=== PATIENT | female | born 1995 | race Caucasian/White ===

== ENCOUNTER 2023-01-19 19:58 | Inpatient (IN) | payer OTHER ==
[2023-01-19] MEDS ORDERED: Carboprost Tromethamine 250 MCG/1 ML Amp IM PRN (20:40)
[2023-01-19] MEDS ORDERED: Terbutaline 1 MG/ML SDV SUBCUT PRN (20:40)
[2023-01-19] MEDS ORDERED: Water For Irrigation,Sterile 1,000 ML Container IRR PRN (20:40)
[2023-01-19] MEDS ORDERED: Misoprostol 200 MCG Tab PO PRN (20:40)
[2023-01-19] MEDS ORDERED: Sodium Chloride 0.9% 2.5 ML Syringe FLUSH PRN (20:40)
[2023-01-19] MEDS ORDERED: Butorphanol 1 MG/ML SDV IVPUSH PRN (20:40)
[2023-01-19] MEDS ORDERED: Sodium Chloride 0.9% 10 ML Syringe FLUSH PRN (20:40)
[2023-01-19] MEDS ORDERED: Ondansetron 4 MG/2 ML SDV IVPUSH PRN (20:40)
[2023-01-19] MEDS ORDERED: Methylergonovine 0.2 MG/1 ML Amp IM PRN (20:40)
[2023-01-19] MEDS ORDERED: Sodium Chloride 0.9% 20 ML SDV IV PRN (20:40)
[2023-01-19] MEDS ORDERED: Tranexamic Acid 1,000 MG in Sodium Chloride 0.9% 100 ML IV PRN (20:40)
[2023-01-19] MEDS ORDERED: Lidocaine 1% 50 ML MDV INJECT PRN (20:40)
[2023-01-19] MEDS ORDERED: Oxytocin/0.9 % Sodium Chloride 30 UNIT/500 ML BAG IV SCH ×2 (20:45)
[2023-01-19] MEDS ORDERED: Misoprostol 25 MCG (1/4 of 100 MCG) Tab VAG PRN (21:00)
[2023-01-20 00:06] LABS: CARBON DIOXIDE,CO2 19.9 mmol/L (21.0-32.0); POTASSIUM,K 4.3 mmol/L (3.5-5.1)
[2023-01-20] MEDS ORDERED: Misoprostol 25 MCG (1/4 of 100 MCG) Tab VAG PRN (01:00)
[2023-01-20] MEDS: Lactated Ringers 1,000 ML IV SCH ×4 (05:03→19:40)
[2023-01-20] MEDS ORDERED: Ropivacaine/PF 400 MG/200 ML PCA ONE (05:40)
[2023-01-20] MEDS ORDERED: Dexmedetomidine 200 MCG/2 ML SDV ONE (05:40)
[2023-01-20] MEDS ORDERED: Phenylephrine HCl 0.5 MG/5 ML AMP ONE (05:40)
[2023-01-20] MEDS ORDERED: ePHEDrine 50 MG/ML SDV IVPUSH PRN ×2 (05:50)
[2023-01-20] MEDS ORDERED: Phenylephrine HCl 0.5 MG/5 ML AMP IVPUSH PRN (05:50)
[2023-01-20] MEDS ORDERED: Ropivacaine HCl/PF 400 MG in Premix Bag 1 BAG EPIDUR SCH (06:00)
[2023-01-20] MEDS ORDERED: Bisacodyl 10 MG Supp RECTAL PRN (21:51)
[2023-01-20] MEDS ORDERED: Acetaminophen 500 MG Tab PO PRN (21:51)
[2023-01-20] MEDS ORDERED: Lanolin 100% Cream 7 GM Tube TOP PRN (21:51)
[2023-01-20] MEDS ORDERED: oxyCODONE 5 MG Tab PO PRN (21:51)
[2023-01-20] MEDS ORDERED: Docusate Sodium 100 MG Cap PO PRN (21:51)
[2023-01-20] MEDS ORDERED: Ibuprofen 400 MG Tab PO PRN (21:51)
[2023-01-20] MEDS ORDERED: Benzocaine/Menthol 20%-0.5% Spray 78 GM Cannister TOP PRN (21:51)
[2023-01-20] MEDS ORDERED: Witch Hazel Medicated Pads 40/Jar TOP PRN (21:51)
[2023-01-20] MEDS: Ibuprofen 800 MG Tab PO PRN (23:31)
[2023-01-20] MEDS: Acetaminophen 500 MG Tab PO PRN (23:32)
[2023-01-21] MEDS ORDERED: Methylergonovine 0.2 MG/1 ML Amp ONE (04:55)
[2023-01-21] MEDS: Acetaminophen 500 MG Tab PO PRN (05:02)
[2023-01-21] MEDS ORDERED: Methylergonovine 0.2 MG/1 ML Amp IM ONE (05:21)
[2023-01-21] MEDS: Ibuprofen 800 MG Tab PO PRN (05:48)
== END 2023-01-22 11:35 | disposition home or self-care (01) | DRG 807 ==
LOC: MW.OB 19:58 → OBSVTOIN 01-20 21:27 → MW.OB 01-21 00:12
PROVIDERS: ADMIT Obstetrics & Gynecology; ATTEND Obstetrics & Gynecology
PROC: 10E0XZZ Delivery of Products of Conception, External Approach (ICD-10-PCS; principal; 2023-01-20)
PROC: 3E0P7VZ Introduction of Hormone into Female Reproductive, Via Natural or Artificial Opening (ICD-10-PCS; 2023-01-20)
PROC: 0HQ9XZZ Repair Perineum Skin, External Approach (ICD-10-PCS; 2023-01-20)
PROC: 3E0R3BZ Introduction of Anesthetic Agent into Spinal Canal, Percutaneous Approach (ICD-10-PCS; 2023-01-20)
PROC: 00HU33Z Insertion of Infusion Device into Spinal Canal, Percutaneous Approach (ICD-10-PCS; 2023-01-20)
DX: O70.0 First degree perineal laceration during delivery (principal); Z37.0 Single live birth; Z3A.39 39 weeks gestation of pregnancy; Z87.891 Personal history of nicotine dependence
CPT/HCPCS: 01967; 36415; 51702; 59025; 59409; 80053; 81003; 82803; 84112; 84550; 85014; 85018; 85027; 86592; 86850; 86900; 86901; A9270-GY; J0595; J2210; J2370; J2405; J2590; J2795; J3490; J7120

== ENCOUNTER 2024-08-19 20:03 | Emergency (ER) | payer OTHER ==
[2024-08-19 20:25] LABS: BASOPHILS ABSOLUTE AUTO 0.02 K/uL (0.00-0.20); BASOPHILS PERCENT AUTO 0.2 % (0.0-1.0); EOSINOPHILS ABSOLUTE AUTO 0.21 K/uL (0.00-0.45); EOSINOPHILS PERCENT AUTO 1.9 % (0.0-6.0); HEMATOCRIT 39.3 % (37.0-47.0); HEMOGLOBIN 13.2 g/dL (12.0-16.0); IMMATURE GRAN ABSOLUTE AUTO 0.05 K/uL (0.00-0.05); IMMATURE GRAN PERCENT AUTO 0.4 % (0.0-0.4); LYMPHOCYTES ABSOLUTE AUTO 2.77 K/uL (1.00-4.80); LYMPHOCYTES PERCENT AUTO 24.6 % (24.0-44.0); MEAN CORPUSCULAR HEMOGLOBIN 28.4 pg (28.0-32.0); MEAN CORPUSCULAR HGB CONC 33.6 g/dL (32.0-36.0); MEAN CORPUSCULAR VOLUME 84.5 fL (83.0-99.0); MEAN PLATELET VOLUME 10.5 fL (9.4-12.3); MONOCYTES ABSOLUTE AUTO 0.62 K/uL (0.00-0.80); MONOCYTES PERCENT AUTO 5.5 % (0.0-8.0); NEUTROPHILS ABSOLUTE AUTO 7.61 K/uL (1.80-7.70); NEUTROPHILS PERCENT AUTO 67.4 % (41.0-71.0); PLATELET COUNT,PLT 242 K/uL (150-400); RED BLOOD CELL COUNT 4.65 M/uL (4.10-5.30); WHITE BLOOD CELL COUNT,WBC 11.28 K/uL (3.9-11.3)
[2024-08-19 21:19] LABS: A/G RATIO 0.7 (0.9-1.6); ALANINE AMINOTRANSFERASE,ALT 31 IU/L (14-63); ALBUMIN 2.8 g/dL (3.4-5.0); ALKALINE PHOSPHATASE 109 U/L (46-116); ASPARTATE AMNIOTRANSFERASE,AST 14 IU/L (15-37); BILIRUBIN TOTAL 0.1 mg/dL (0.2-1.0); BLOOD UREA NITROGEN,BUN 12 mg/dL (7.0-18.0); CHLORIDE,CL 104 mmol/L (98-107); CREATININE 0.7 mg/dL (0.6-1.0); GLUCOSE RANDOM 106 mg/dL (74-106); POTASSIUM,K 3.7 mmol/L (3.5-5.1); PROTEIN TOTAL,TP 6.9 g/dL (6.4-8.2); SODIUM,NA 137 mmol/L (136-145)
[2024-08-19 21:24] LABS: ESTIMATED GFR 121 mL/min (>60)
[2024-08-19 22:05] LABS: BILIRUBIN,URINE NEGATIVE (NEGATIVE); GLUCOSE,URINE NEGATIVE (NEGATIVE); KETONES,URINE NEGATIVE (NEGATIVE); LEUKOCYTE ESTERASE,URINE NEGATIVE (NEGATIVE); NITRITE,URINE NEGATIVE (NEGATIVE); OCCULT BLOOD,URINE LARGE (NEGATIVE); PROTEIN,URINE NEGATIVE (NEGATIVE); UROBILINOGEN,URINE 0.2 EU/dL (<2.0)
[2024-08-19 22:10] LABS: APPEARANCE,URINE HAZY; COLOR,URINE PINK
[2024-08-19 22:13] LABS: BACTERIA,URINE FEW (NEGATIVE); EPITHELIAL CELLS,URINE OCCASIONAL (NONE-FEW); WBC,URINE 0-1 (0-5/HPF)
== END 2024-08-19 22:37 | disposition home or self-care (01) ==
LOC: MW.ED 20:03
DX: O20.0 Threatened abortion (principal); R82.71 Bacteriuria; Z75.8 Other problems related to medical facilities and other health care; Z79.82 Long term (current) use of aspirin; Z79.899 Other long term (current) drug therapy; Z3A.14 14 weeks gestation of pregnancy
CPT/HCPCS: 36415; 76801; 76801-26; 80053; 81001; 84702; 85025; 99284

== ENCOUNTER 2025-02-06 20:49 | Inpatient (IN) | payer OTHER ==
[2025-02-06 21:36] LABS: APPEARANCE,URINE CLEAR; BILIRUBIN,URINE NEGATIVE (NEGATIVE); COLOR,URINE YELLOW; GLUCOSE,URINE NEGATIVE (NEGATIVE); KETONES,URINE NEGATIVE (NEGATIVE); LEUKOCYTE ESTERASE,URINE MODERATE (NEGATIVE); NITRITE,URINE NEGATIVE (NEGATIVE); OCCULT BLOOD,URINE NEGATIVE (NEGATIVE); PROTEIN,URINE NEGATIVE (NEGATIVE); UROBILINOGEN,URINE 0.2 EU/dL (<2.0)
[2025-02-06] MEDS ORDERED: Ondansetron 4 MG/2 ML SDV IVPUSH PRN (21:46)
[2025-02-06] MEDS ORDERED: Water For Irrigation,Sterile 1,000 ML Container IRR PRN (21:46)
[2025-02-06] MEDS ORDERED: Carboprost Tromethamine 250 MCG/1 mL Vial IM PRN (21:46)
[2025-02-06] MEDS ORDERED: Methylergonovine 0.2 MG/1 ML Amp IM PRN (21:46)
[2025-02-06] MEDS ORDERED: Sodium Chloride 0.9% 20 ML SDV IV PRN (21:46)
[2025-02-06] MEDS ORDERED: Misoprostol 200 MCG Tab PO PRN (21:46)
[2025-02-06] MEDS ORDERED: Lidocaine 1% 50 ML MDV INJECT PRN (21:46)
[2025-02-06] MEDS ORDERED: Sodium Chloride 0.9% 2.5 ML Syringe FLUSH PRN (21:46)
[2025-02-06] MEDS ORDERED: Sodium Chloride 0.9% 10 ML Syringe FLUSH PRN (21:46)
[2025-02-06 22:27] LABS: HEMATOCRIT 34.7 % (37.0-47.0); HEMOGLOBIN 11.8 g/dL (12.0-16.0); MEAN CORPUSCULAR HEMOGLOBIN 27.3 pg (28.0-32.0); MEAN CORPUSCULAR VOLUME 80.1 fL (83.0-99.0); PLATELET COUNT,PLT 233 K/uL (150-400); RED BLOOD CELL COUNT 4.33 M/uL (4.10-5.30); WHITE BLOOD CELL COUNT,WBC 14.66 K/uL (3.9-11.3)
[2025-02-06] MEDS: Lactated Ringers 1,000 ML IV SCH (22:30)
[2025-02-06] MEDS ORDERED: Phenylephrine HCl In 0.9% NaCl 1 MG/10 ML Syringe ONE (22:56)
[2025-02-06] MEDS ORDERED: Bupivacaine 0.5% 10 ML SDV ONE (22:56)
[2025-02-06] MEDS ORDERED: Ropivacaine HCl/PF 200 ML ONE (22:56)
[2025-02-06] MEDS: Ropivacaine HCl/PF 400 MG in Premix Bag 1 BAG EPIDUR SCH (23:03)
[2025-02-06] MEDS ORDERED: Phenylephrine HCl In 0.9% NaCl 1 MG/10 ML Syringe IVPUSH PRN (23:17)
[2025-02-06] MEDS ORDERED: ePHEDrine 50 MG/ML SDV IVPUSH PRN (23:17)
[2025-02-06] MEDS ORDERED: ePHEDrine 50 MG/ML SDV IM PRN (23:17)
[2025-02-06] MEDS ORDERED: dexmedeTOMIDine HCl 200 MCG/2 ML SDV EPIDUR SCH (23:30)
[2025-02-07] MEDS: Oxytocin/0.9 % Sodium Chloride 30 UNIT/500 ML BAG IV SCH (01:15)
[2025-02-07] MEDS ORDERED: Atropine/Diphenoxylate 0.025-2.5 MG Tab PO ONE (01:56)
[2025-02-07] MEDS ORDERED: Acetaminophen 500 MG Tab PO PRN (02:08)
[2025-02-07] MEDS ORDERED: Ibuprofen 800 MG Tab PO PRN (02:08)
[2025-02-07] MEDS ORDERED: Lanolin 100% Cream 7 GM Tube TOP PRN (02:08)
[2025-02-07] MEDS ORDERED: Docusate Sodium 100 MG Cap PO PRN (02:08)
[2025-02-07 02:31] LABS: PH,UMBILICAL ARTERIAL 7.26 (7.18-7.38); PH,UMBILICAL VENOUS 7.34 (7.25-7.45)
[2025-02-07] MEDS: Benzocaine/Menthol 20%-0.5% Spray 78 GM Cannister TOP PRN (05:11)
[2025-02-07] MEDS: Witch Hazel Medicated Pads 40/Jar TOP PRN (05:13)
[2025-02-07 06:55] LABS: BASOPHILS ABSOLUTE AUTO 0.04 K/uL (0.00-0.20); BASOPHILS PERCENT AUTO 0.2 % (0.0-1.0); EOSINOPHILS ABSOLUTE AUTO 0.02 K/uL (0.00-0.45); EOSINOPHILS PERCENT AUTO 0.1 % (0.0-6.0); HEMATOCRIT 34.9 % (37.0-47.0); HEMOGLOBIN 11.5 g/dL (12.0-16.0); IMMATURE GRAN ABSOLUTE AUTO 0.08 K/uL (0.00-0.05); IMMATURE GRAN PERCENT AUTO 0.4 % (0.0-0.4); LYMPHOCYTES ABSOLUTE AUTO 2.14 K/uL (1.00-4.80); MEAN CORPUSCULAR HEMOGLOBIN 26.9 pg (28.0-32.0); MEAN CORPUSCULAR VOLUME 81.5 fL (83.0-99.0); MEAN PLATELET VOLUME 11.3 fL (9.4-12.3); MONOCYTES ABSOLUTE AUTO 1.03 K/uL (0.00-0.80); MONOCYTES PERCENT AUTO 5.3 % (0.0-8.0); NEUTROPHILS ABSOLUTE AUTO 16.13 K/uL (1.80-7.70); PLATELET COUNT,PLT 221 K/uL (150-400); RED BLOOD CELL COUNT 4.28 M/uL (4.10-5.30); WHITE BLOOD CELL COUNT,WBC 19.44 K/uL (3.9-11.3)
[2025-02-08 09:40] LABS: BASOPHILS ABSOLUTE AUTO 0.03 K/uL (0.00-0.20); BASOPHILS PERCENT AUTO 0.2 % (0.0-1.0); EOSINOPHILS ABSOLUTE AUTO 0.15 K/uL (0.00-0.45); EOSINOPHILS PERCENT AUTO 1.2 % (0.0-6.0); HEMATOCRIT 35.6 % (37.0-47.0); HEMOGLOBIN 11.7 g/dL (12.0-16.0); IMMATURE GRAN ABSOLUTE AUTO 0.05 K/uL (0.00-0.05); IMMATURE GRAN PERCENT AUTO 0.4 % (0.0-0.4); LYMPHOCYTES PERCENT AUTO 18.2 % (24.0-44.0); MEAN CORPUSCULAR HEMOGLOBIN 26.8 pg (28.0-32.0); MEAN CORPUSCULAR HGB CONC 32.9 g/dL (32.0-36.0); MEAN CORPUSCULAR VOLUME 81.7 fL (83.0-99.0); MEAN PLATELET VOLUME 10.6 fL (9.4-12.3); MONOCYTES ABSOLUTE AUTO 0.42 K/uL (0.00-0.80); MONOCYTES PERCENT AUTO 3.5 % (0.0-8.0); NEUTROPHILS ABSOLUTE AUTO 9.27 K/uL (1.80-7.70); NEUTROPHILS PERCENT AUTO 76.5 % (41.0-71.0); PLATELET COUNT,PLT 224 K/uL (150-400); RED BLOOD CELL COUNT 4.36 M/uL (4.10-5.30); WHITE BLOOD CELL COUNT,WBC 12.12 K/uL (3.9-11.3)
== END 2025-02-08 12:14 | disposition home or self-care (01) | DRG 807 ==
LOC: MW.OB 20:49 → MW.OBCHECK 20:49 → MW.OB 21:46 → OBSVTOIN 02-07 01:15 → MW.OB 02-07 04:59
PROVIDERS: ADMIT Obstetrics & Gynecology; ATTEND Obstetrics & Gynecology
PROC: 10E0XZZ Delivery of Products of Conception, External Approach (ICD-10-PCS; principal; 2025-02-07)
PROC: 0HQ9XZZ Repair Perineum Skin, External Approach (ICD-10-PCS; 2025-02-07)
PROC: 3E0R3BZ Introduction of Anesthetic Agent into Spinal Canal, Percutaneous Approach (ICD-10-PCS; 2025-02-07)
DX: O99.214 Obesity complicating childbirth (principal); Z37.0 Single live birth; O70.0 First degree perineal laceration during delivery; E66.812 Obesity, class 2; O36.93X0 Maternal care for fetal problem, unspecified, third trimester, not applicable or unspecified; O99.892 Other specified diseases and conditions complicating childbirth; Z79.899 Other long term (current) drug therapy; Z3A.39 39 weeks gestation of pregnancy
CPT/HCPCS: 01967; 36415; 51702; 59025; 59409; 81003; 82803; 85025; 85027; 86592; 86850; 86900; 86901; A9270-GY; J0665; J2590; J2795; J7120